=== PATIENT | male | born 1990 | race Two or more races ===

== ENCOUNTER 2019-03-10 20:00 | Emergency (ER) | payer SELFPAY ==
[~2019-03-10] VITALS: Ht 167.6 cm; Wt 72.7 kg
[2019-03-10 21:09] VITALS: BP 127/81
== END 2019-03-10 21:11 | disposition home or self-care (01) ==
LOC: EMS 20:01
DX: S61.204A Unspecified open wound of right ring finger without damage to nail, initial encounter (principal); W26.8XXA Contact with other sharp object(s), not elsewhere classified, initial encounter; Y93.G9 Activity, other involving cooking and grilling; Y92.89 Other specified places as the place of occurrence of the external cause; Y99.8 Other external cause status